=== PATIENT | female | born 1985 | race Caucasian/White ===

== ENCOUNTER 2024-04-10 11:49 | Emergency (ER) | payer OTHER, SELFPAY ==
[2024-04-10 11:58] VITALS: BP 119/85; PULSE 98; RESP 16; TEMP 36.7; O2SAT 97
--- NOTE | 2024-04-10 12:51 | ED.EAR ---
HPI - Ear Problem General Chief complaint: Ear Stated complaint: sinus and ear pain Source: patient Mode of arrival: ambulatory Limitations: no limitations History of Present Illness HPI Narrative: 39-year-old female presented for complaint of bilateral ear pain and nasal congestion for 1 week. Took a negative COVID test yesterday. Denies shortness of breath, wheezing, nausea, vomiting, diarrhea or lethargy. Take Zyrtec daily. Smokes half pack per day. MD Complaint: ear pain Related Data Home Medications Medication Instructions Recorded Confirmed metformin 500 mg tablet 500 mg PO DAILY 04/10/24 04/10/24 semaglutide 0.25 mg or 0.5 mg (2 0.5 mg subcut WEEKLY 04/10/24 04/10/24 mg/3 mL) subcutaneous pen injector ([employer]) simvastatin 10 mg tablet 10 mg PO DAILY 04/10/24 04/10/24 Allergies Allergy/AdvReac Type Severity Reaction Status Date / Time ibuprofen Allergy Swelling Verified 04/10/24 12:03 Review of Systems Review of Systems: CONSTITUTIONAL: Denies malaise, chills, or fever. EYES: Denies visual changes, redness, or discharge. ENT: Reports ear pain rhinorrhea, congestion CARDIOVASCULAR: Denies chest pain, palpitations, or edema. RESPIRATORY: reports cough denies dyspnea. GASTROINTESTINAL: Denies abdominal pain, nausea, vomiting, diarrhea SKIN: Denies rash or itching. MUSCULOSKELETAL: Denies myalgia. NEUROLOGIC: Denies headache. All systems reviewed & are unremarkable except as noted in HPI and below PMFSH Comments At time of signature, agree with nursing past medical, surgical, social and family history. There is no relevant family history pertinent to the presenting complaint Exam Narrative: GENERAL: Well-appearing, well-nourished, and in no acute distress. EYES: PERRLA, conjunctivae clear ENT: Nares clear. Mucous membranes moist. bilateral TMs erythematous, bulging and intact; canals not erythematous, no drainage no tragal tenderness. Oropharynx not erythematous without lesions. Tonsils not enlarged and without exudate, no drooling, no hoarseness, no trismus, uvula midline. NECK: Supple. No lymphadenopathy CHEST: Clear to auscultation, breath sounds equal. Frequent rnp cough. No wheezing, rhonchi, rales, or stridor. No respiratory distress, speaks in full sentences. HEART: Regular rate and rhythm. No murmur heard. SKIN: Warm, dry, no rash. NEURO: Alert and oriented x3. PSYCH: Normal mood and affect Course Course Emergency Course: Patient is aware of diagnosis, understands and agrees to treatment plan. Anticipatory guidance given. Patient agrees to follow-up as directed and is aware of reasons to seek care at the emergency department. Portions of this record may have been created with voice recognition software Level of Care: Express Care Visit Vital Signs Vital signs: Vital Signs Temperature 98.1 F 04/10/24 11:58 Pulse Rate 98 04/10/24 11:58 Respiratory Rate 16 04/10/24 11:58 Blood Pressure 119/85 04/10/24 11:58 Pulse Oximetry 97 04/10/24 11:58 Oxygen Delivery Room Air 04/10/24 11:58 Temperature 98.1 F 04/10/24 11:58 Pulse Rate 98 04/10/24 11:58 Respiratory Rate 16 04/10/24 11:58 Blood Pressure 119/85 04/10/24 11:58 Pulse Oximetry 97 04/10/24 11:58 Oxygen Delivery Room Air 04/10/24 11:58 Reviewed Medical Decision Making MDM Narrative Medical decision making narrative: discussed physical exam findings Consistent with bilateral AOM, bronchitis. and reviewed prescriptions. Advised supportive measures and signs/symptoms to go to the ER. Patient is appropriate for outpatient treatment and follow-up. Differential Diagnosis Differential Diagnosis: Coronavirus, strep pharyngitis, allergic rhinitis, upper respiratory tract infection, sinusitis, rhinosinusitis, nasopharyngitis, viral pharyngitis, otitis media, otitis externa, eustachian tube dysfunction, foreign body, cerumen impaction. Vital Signs Vital Signs: Vital Signs Te
== END 2024-04-10 13:03 | disposition home or self-care (01) ==
PROVIDERS: Emergency Provider Nurse Practitioner Family; PCP Nurse Practitioner Family
DX: J40 Bronchitis, not specified as acute or chronic (principal); H66.003 Acute suppurative otitis media without spontaneous rupture of ear drum, bilateral; E78.00 Pure hypercholesterolemia, unspecified; F17.200 Nicotine dependence, unspecified, uncomplicated
CPT/HCPCS: 99213; G0463